=== PATIENT | male | born 1985 | race African-American/Black ===

== ENCOUNTER 2020-09-09 12:56 | Emergency (ER) | payer OTHER ==
[~2020-09-09] VITALS: Ht 193 cm; Wt 149.7 kg
[2020-09-09] MEDS ORDERED: DUI500 PO (16:18)
== END 2020-09-09 16:26 | disposition home or self-care (01) ==
LOC: ER 12:56
DX: S61.011A Laceration without foreign body of right thumb without damage to nail, initial encounter (principal); S91.311A Laceration without foreign body, right foot, initial encounter; W25.XXXA Contact with sharp glass, initial encounter; Y93.89 Activity, other specified; Y92.012 Bathroom of single-family (private) house as the place of occurrence of the external cause; Y99.8 Other external cause status